=== PATIENT | female | born 1980 | race Caucasian/White ===

== ENCOUNTER 2018-11-09 12:18 | Emergency (ER) | payer OTHER ==
[~2018-11-09] VITALS: Ht 182.9 cm; Wt 81.7 kg
[2018-11-09] MEDS ORDERED: CLARITIN10 MG PO (12:40)
[2018-11-09] MEDS ORDERED: ASPIR 8181 MG PO (12:40)
[2018-11-09] MEDS ORDERED: IRON325 PO (12:40)
[2018-11-09] MEDS ORDERED: NORCO 5-325 TA1 EACH PO (14:23)
[2018-11-09 14:49] VITALS: BP 104/79
== END 2018-11-09 14:49 | disposition home or self-care (01) ==
LOC: ER 12:18
DX: S50.02XA Contusion of left elbow, initial encounter (principal); S10.93XA Contusion of unspecified part of neck, initial encounter; S00.412A Abrasion of left ear, initial encounter; S00.81XA Abrasion of other part of head, initial encounter; S70.312A Abrasion, left thigh, initial encounter; M25.512 Pain in left shoulder; M54.9 Dorsalgia, unspecified; F17.200 Nicotine dependence, unspecified, uncomplicated; W01.0XXA Fall on same level from slipping, tripping and stumbling without subsequent striking against object, initial encounter; Y92.89 Other specified places as the place of occurrence of the external cause; Y93.67 Activity, basketball; Y99.8 Other external cause status